=== PATIENT | female | born 1990 | race Caucasian/White ===

== ENCOUNTER 2017-05-15 01:53 | Emergency (ER) | payer OTHER ==
[~2017-05-15] VITALS: Ht 167.6 cm; Wt 87.4 kg
[2017-05-15 02:00] VITALS: BP 152/83; PULSE 80; TEMP 36.8; Ht 167.6 cm; Wt 87.4 kg
[2017-05-15] MEDS ORDERED: SODIUM CHLORIDE 0.9% 1000ML 2,000 ML IV STA (02:04)
[2017-05-15] MEDS ORDERED: ONDANSETRON INJ 2 MG/ML 2 ML VIAL IV STA (02:04)
[2017-05-15] MEDS ORDERED: DICYCLOMINE HCL 10 MG/ML 2 ML AMP IM ONE (02:15)
[2017-05-15 02:20] LABS: BASO % 0.2 %; BASO ABS # 0.02 K/uL (0-0.2); EOS % 0.5 %; EOS ABS # 0.04 K/uL (0-0.5); HEMATOCRIT 38.8 % (37-47); HEMOGLOBIN 13.7 g/dL (12.0-16.0); IG# 0.01 K/uL (0.00-0.02); LYMPH % 13.5 %; LYMPH ABS # 1.18 K/uL (1.2-3.4); MEAN CELL VOLUME 84.5 fL (80-100); MEAN CORPUSCULAR HEMOGLOBIN 29.8 pg (25-34); MEAN CORPUSCULAR HGB CONC 35.3 g/dl (32-36); MEAN PLATELET VOLUME 11.1 fL (7.4-10.4); MONO % 5.5 %; MONO ABS # 0.48 K/uL (0.11-0.59); NEUT % 80.2 %; NEUT ABS # 7.01 K/uL (1.4-6.5); PLATELET COUNT 222 K/uL (130-400); RED CELL DISTRIBUTION WIDTH CV 13.1 % (11.5-14.5); RED CELL DISTRIBUTION WIDTH SD 39.8 fL (36.4-46.3); WHITE BLOOD COUNT 8.74 K/uL (4.8-10.8)
[2017-05-15 02:46] LABS: CALCIUM 10.1 mg/dl (8.5-10.1); CREATININE 0.86 mg/dl (0.60-1.20); POTASSIUM 3.6 mmol/L (3.5-5.1)
--- NOTE | 2017-05-15 03:35 | EMERGENCY ROOM VISIT NOTE ---
History First contact with patient: 02:03 Chief Complaint: VOMITING Stated Complaint: NAUSEA,VOMITING,DIZZY,ABD PAIN History of Present Illness The patient is a 26 year old female who presents to the Emergency Room with complaints of nausea, vomiting, diarrhea and abdominal cramping for the past day. Spouse is sick with similar complaints. No recent antibiotics. No bad food exposure. No sick contacts. Patient denies chest pain, dyspnea, fever, chills, cough, congestion or urinary symptoms. No blood or black in the emesis or stool. Review of Systems See HPI for pertinent positives & negatives. A total of 10 systems reviewed and were otherwise negative. Past Medical/Surgical History Medical Problems: (1) No Known Active Medical Problems Family History Kidney disease Social History Smoking Status: Never Smoker Alcohol Use: none Marital Status: Housing Status: lives with family Current/Historical Medications No Active Prescriptions or Reported Meds Physical Exam Vital Signs Date Time Temp Pulse Resp B/P (MAP) Pulse Ox O2 Delivery O2 Flow Rate FiO2 05/15/17 02:00 36.8 80 18 152/83 98 Room Air Physical Exam VITALS: Vitals are noted on the nurse's note and reviewed by myself. Vital signs stable. GENERAL: Pleasant patient, in no acute distress, nondiaphoretic, well-developed well-nourished. SKIN: The skin was without rashes, erythema, edema, or bruising. There is no tenting of the skin. Capillary reflex less than 2 seconds. HEAD: Normocephalic atraumatic. EARS: External auditory canals clear, tympanic membranes pearly stapleton without erythema or effusion bilaterally. EYES: Pupils equal round and reactive to light and accommodation. Conjunctivae without injection, sclerae without icterus. Extraocular movements intact. NOSE: Patent, turbinates without inflammation or discharge. MOUTH: Mucous membranes mildly dry. Pharynx without erythema or exudate. Uvula midline. Airway patent. Tongue does not deviate. NECK: Supple without nuchal rigidity. No lymphadenopathy. No thyromegaly. Cervical spine is nontender. No JVD. HEART: Regular rate and rhythm without murmurs gallops or rubs. LUNGS: Clear to auscultation bilaterally without wheezes, rales or rhonchi. No dullness to percussion. No retractions or accessory muscle use. ABDOMEN: Positive bowel sounds x 4. Normal tympanic percussion. Soft, nontender, without masses or organomegaly. Pionn sign negative. No guarding or rebound tenderness. MUSCULOSKELETAL: No muscle atrophy, erythema, or edema noted. NEURO: Patient was alert and oriented to person place and time. Normal sensation to light and sharp touch. No focal neurological deficits. Medical Decision & Procedures Laboratory Results 05/15/17 02:07 Red Blood Count 4.59, Mean Corpuscular Volume 84.5, Mean Corpuscular Hemoglobin 29.8, Mean Corpuscular Hemoglobin Concent 35.3, Mean Platelet Volume 11.1, Neutrophils (%) (Auto) 80.2, Lymphocytes (%) (Auto) 13.5, Monocytes (%) (Auto) 5.5, Eosinophils (%) (Auto) 0.5, Basophils (%) (Auto) 0.2, Neutrophils # (Auto) 7.01, Lymphocytes # (Auto) 1.18, Monocytes # (Auto) 0.48, Eosinophils # (Auto) 0.04, Basophils # (Auto) 0.02 05/15/17 02:07 Test 05/15/17 02:07 05/15/17 03:21 White Blood Count 8.74 K/uL (4.8-10.8) Red Blood Count 4.59 M/uL (4.2-5.4) Hemoglobin 13.7 g/dL (12.0-16.0) Hematocrit 38.8 % (37-47) Mean Corpuscular Volume 84.5 fL (80-100) Mean Corpuscular Hemoglobin 29.8 pg (25-34) Mean Corpuscular Hemoglobin Concent 35.3 g/dl (32-36) Platelet Count 222 K/uL (130-400) Mean Platelet Volume 11.1 fL (7.4-10.4) Neutrophils (%) (Auto) 80.2 % Lymphocytes (%) (Auto) 13.5 % Monocytes (%) (Auto) 5.5 % Eosinophils (%) (Auto) 0.5 % Basophils (%) (Auto) 0.2 % Neutrophils # (Auto) 7.01 K/uL (1.4-6.5) Lymphocytes # (Auto) 1.18 K/uL (1.2-3.4) Monocytes # (Auto) 0.48 K/uL (0.11-0.59) Eosinophils # (Auto) 0.04 K/uL (0-0.5) Basophils # (Auto) 0.02 K/uL (0-0.2) RDW Standard Deviation 39.8 fL (36.4-46.3) RDW Coefficient of Variation 13.1 % (11.5-14.5) Immature Granulocyte % (Auto) 0.1 % Immature Granulocyte # (Auto) 0.01 K/uL (0.00-0.02) Anion Gap 4.0 mmol/L (3-11) Est Creatinine Clear Calc Drug Dose 109.4 ml/min Estimated GFR () 107.3 Estimated GFR (Non- 92.6 BUN/Creatinine Ratio 11.8 (10-20) Calcium Level 10.1 mg/dl (8.5-10.1) Human Chorionic Gonadotropin, Qual NEG (NEG) Urine Color YELLOW Urine Appearance CLEAR (CLEAR) Urine pH 5.5 (4.5-7.5) Urine Specific Archer 1.013 (1.000-1.030) Urine Protein NEG (NEG) Urine Glucose (UA) NEG (NEG) Urine Ketones NEG (NEG) Urine Occult Blood NEG (NEG) Urine Nitrite NEG (NEG) Urine Bilirubin NEG (NEG) Urine Urobilinogen NEG (NEG) Urine Leukocyte Esterase NEG (NEG) Medications Administered Medications (Trade) Dose Ordered Sig/Tae Route Start Time Stop Time Status Last Admin Dose Admin Sodium Chloride 2,000 ml @ 999 mls/hr Q2H1M STAT IV 05/15/17 02:04 05/15/17 04:04 05/15/17 02:16 999 MLS/HR Ondansetron HCl (Zofran Inj) 4 mg NOW STAT IV 05/15/17 02:04 05/15/17 02:05 DC 05/15/17 02:15 4 MG Dicyclomine HCl (Bentyl Inj) 20 mg NOW ONCE IM 05/15/17 02:15 05/15/17 02:16 DC 05/15/17 02:15 20 MG ED Course Prior records/ancillary studies reviewed. Triage Nursing notes reviewed. Additional history obtained from the family. The patient's history was concerning for nausea, vomiting, diarrhea, and abdominal pain. Differential diagnosis: Etiologies such as gastroenteritis, food borne illness, infections, appendicitis , diverticulitis, inflammatory bowel disease, obstruction, GI bleed, biliary pathology, as well as others were entertained. Physical examination findings: As above. Abdominal examination revealed no localized tenderness. Vital signs reviewed and revealed stable. ER treatment provided: IV hydration 2 L NSS. Zofran, Bentyl On reassessment the patient felt better. Patient was tolerating p.o. intake. Diagnostics interpretation by me: The labs revealed no worrisome leukocytosis. Mild hyperglycemia without DKA This appears to be consistent with nausea vomiting, diarrhea. Patient does not have an acute abdomen on exam. Patient felt much better after being medicated as above. Patient was advised to do a clear liquid diet today and progress as tolerated to bland diet tomorrow. They're advised to take medications as directed and to follow-up family care in a few days or here in the ER sooner for abdominal pain, fevers, vomiting, worsening signs or symptoms or as needed. By the evaluation outlined above emergent etiologies such as appendicitis, diverticulitis, obstruction, cardiac sources, mesenteric ischemia, aortic pathology, inflammatory bowel disease, renal colic, PUD, biliary pathology, UTI , as well as others were deemed relatively unlikely. The pt informed about the findings as listed above. All questions were answered and pleased with the treatment. Return instructions were outlined and the patient was discharged in stable condition. Outpatient prescription management: Zofran Referral: The patient was referred to their primary care physician for follow-up in 2 to 3 days for a recheck of the current condition. Medical Decision As above Medication Reconcilliation Current Medication List: was personally reviewed by me Blood Pressure Screening Patient's blood pressure: Normal blood pressure Impression Primary Impression: Nausea, vomiting, and diarrhea Departure Information Dispostion Home / Self-Care Condition GOOD Prescriptions No Active Prescriptions or Reported Meds Referrals Bud Bowers DO (PCP) Patient Instructions [facility] Additional Instructions Bentyl 10 m tablet every 6-8 hours as needed for abdominal cramping. Zofran(odansetron) tablets 4mg: Take one and allow it to dissolve in your mouth every four to six hours as needed for nausea or vomiting. Ibuprofen(Motrin, Advil) may be used for fever or pain. Use 600mg every six hours as needed. Take with food. Avoid using more than 2400mg in a 24 hour period. Do not use 2400mg per day for more than three consecutive days without physician direction. Prolonged inappropriate use can lead to stomach upset or ulcers. (AND/OR) Acetaminophen(Tylenol) may be used for fever or pain. Use 1000mg every six hours as needed. Avoid using more than 3000mg in a 24 hour period. Rest and drink plenty of fluids as tolerated. Slow sips of water or sports drinks are recommended instead of large amounts all at once. Continue current medications. Once your stomach is settled start with a clear liquid diet (jello, soup broth, etc.) and then advance as tolerated. You should avoid full, heavy meals for about 24 hrs from the time your symptoms resolved. Return to the ER for persistent vomiting, fevers, abdominal pain, chest pains, difficulty breathing, black or bloody stools, worsening of your condition, or as needed. Follow up with your primary physician in 2-3 days for a recheck of your current condition.
[2017-05-15] MEDS ORDERED: BENTYL HOME PACK 10 MG VIAL PO ONE (03:45)
[2017-05-15] MEDS ORDERED: ONDANSETRON HOME PACK 4MG OD TAB PO ONE (03:45)
[2017-05-15 04:00] VITALS: O2SAT 99
== END 2017-05-15 04:00 | disposition home or self-care (01) ==
LOC: C.EDB 01:54 → C.EDA 04:00
DX: R11.2 Nausea with vomiting, unspecified (principal); R19.7 Diarrhea, unspecified; Z84.1 Family history of disorders of kidney and ureter

== ENCOUNTER 2021-02-20 05:28 | Inpatient (IN) ==
--- NOTE | 2021-02-11 08:55 | Anesthesiology Consultation ---
Date of Service February 11, 2021 Assessment & Plan (1) Encounter for pre-operative examination: COVID screening: Per assessment on 02/10: Travel screen negative, no known COVID- 19 positive contacts or current COVID-19 related symptoms. Surgeon arranging preop COVID testing. Awaiting results. 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 Surgery Operation Date: 02/20/21 08:50 Proposed Procedures p Section (Delivery of Baby Through Abdominal Incision - Linda Aguirre MD, FACOG s Bilateral Tube Ligation - Linda Aguirre MD, FACOG Height/Weight Height: 5 ft 6 in Weight: 79.379 kg Allergies Allergy/AdvReac Type Severity Reaction Status Date / Time bee venom protein (honey bee) Allergy Unknown SHORTNESS Verified 02/10/21 15:59 OF BREATH,swelling,fever hydrocodone AdvReac Unknown seizures Verified 02/10/21 15:59 Medications Home Medications Medication Instructions Recorded Confirmed Last Taken prenat.vits,erasmo,lce-[id number]-locwp 1 tab PO DAILY 07/15/20 02/10/21 12/17/20 aspirin 81 mg tablet,delayed 81 mg PO DAILY 12/18/20 02/10/21 12/17/20 release (Adult Low Dose Aspirin) Breast Pump #1 ea 01/30/21 02/04/21 Unknown ondansetron HCl 4 mg tablet 4 mg PO UD PRN 02/10/21 02/10/21 Unknown Past Medical History Medical History Severe pre-eclampsia in third trimester, antepartum hx Past Family History Family History Father Kidney disease Denies family history of Ovarian cancer Prostate cancer Myocardial infarction Breast cancer Colorectal cancer Past Surgical History Surgical History History of Social History Smoking Status: Former smoker tobacco type: cigarettes Do You Dip or Chew Tobacco: No Smoking End Date: SMOKED AGE 16-20 Hx Alcohol Use: No Hx Substance Use: No substance use type: does not use Lab Results Anesthesia Preop Results Results Anesthesia Widget: WBC 9.09 K/uL (4.8-10.8) 12/18/20 Hgb 10.2 g/dL (12.0-16.0) L 12/18/20 Hct 30.2 % (37-47) L 12/18/20 Plt 208 K/uL (130-400) 12/18/20 Na 136 mmol/L (136-145) 12/18/20 K 3.4 mmol/L (3.5-5.1) L 12/18/20 Cl 106 mmol/L (98-107) 12/18/20 CO2 24 mmol/L (21-32) 12/18/20 BUN 12 mg/dl (7-18) 12/18/20 Creat 0.67 mg/dl (0.6-1.2) 12/18/20 Glucose Level 101 mg/dl (70-99) H 12/18/20 Testing Electrocardiogram Date: 11/13/20 SB with short LA at 55bpm. Low voltage QRS. Cannot r/o anterior infarct, age undetermined. Chest X-Ray Date: 11/13/20 Findings: + NAD
--- NOTE | 2021-02-19 20:47 | History & Physical Report ---
Date of Service February 19, 2021 Assessment & Plan (1) Supervision of normal intrauterine in multigravida: (2) Umbilical cord, velamentous insertion: (3) H/O section: (4) Encounter for sterilization: Plan: Will be admitted on 02/20 for planned repeat section and tubal ligation. Risks, alternatives and complications reviewed and consent signed. She is aware of permanence and irreversibility of sterilization, failure and risk of regret r verowed in detail. Patient will plan OR in am. All questions answered, ready to proceed. History of Present Illness Chief Complaint: planned section/desires sterilization Primary Care Provider: Bud Bowers 30yo (twins) at 39+wks ega for planned section and tubal ligation. Denies rom, vb, ctx. +FM. PNC c/b 1. Velamentous cord insertion, normal growth and testing 2. Prior c/s, desires repeat c/s 3. Desires sterilization 4. GBS pos urine 5. Prior complicated by preeclampsia 6. CF carrier, spouse neg PNL Rh pos, RI, GBS postive OBH: c/s twins at 35wks for preeclampsia GYNH: nl paps, no stds Allergies Allergy/AdvReac Type Severity Reaction Status Date / Time bee venom protein (honey bee) Allergy Unknown SHORTNESS Verified 02/19/21 16:04 OF BREATH,swelling,fever hydrocodone AdvReac Unknown seizures Verified 02/19/21 16:04 Home Medications Medication Instructions Recorded Confirmed Type prenat.vits,erasmo,tjm-[id number]-qpnqa 1 tab PO DAILY 07/15/20 02/19/21 History aspirin 81 mg tablet,delayed 81 mg PO DAILY 12/18/20 02/19/21 History release (Adult Low Dose Aspirin) Breast Pump #1 ea 01/30/21 02/19/21 Rx ondansetron HCl 4 mg tablet 4 mg PO UD PRN 02/10/21 02/19/21 History Patient History Medical History Severe pre-eclampsia in third trimester, antepartum hx Surgical History History of Family History Father Kidney disease Denies family history of Ovarian cancer Prostate cancer Myocardial infarction Breast cancer Colorectal cancer Social History Smoking Status: Former smoker Second Hand Exposure: No; Hx Alcohol Use: No Hx Substance Use: No Preferred Language: Portuguese Communication Ability: Effective Orthoptist Required: No Beliefs That Will Affect Care: None marital status: marital status details: Diego (33) [phone] Current Living Situation: Spouse and Family Current Living Situation Comment: lives with spouse, 2 children, 2 dogs. current occupational status: unemployed Feels Safe at Home: Yes Childhood Exposure to Second-Hand Smoke: No caffeine: Yes Dental Care, Regularly: Yes Physical Activity Frequency: 3-4 Times per Week Seatbelt Use: always Sunscreen Use: Yes Assistive Devices: Glasses Review of Systems as per Subjective / HPI Physical Exam Constitutional: WD/WN, vitals as above Respiratory: normal respiratory effort, lungs clear to auscultation Cardiovascular: Rate/Rhythm: regular rate and regular rhythm Gastrointestinal (Abdomen): soft gravid nt fhts 140 Musculoskeletal: no edema nontender calves Neurologic: grossly normal Psychiatric: A+Ox3, euthymic affect Coding Level of Care Code None Diagnoses Supervision of normal intrauterine in multigravida Z34.80 Umbilical cord, velamentous insertion O43.129 H/O section Z98.891 Encounter for sterilization Z30.2
[2021-02-20] MEDS ORDERED: LACTATED RINGER'S 1,000 ML IV SCH (05:45)
[2021-02-20] MEDS ORDERED: ceFAZolin 2,000 MG in SYRINGE 0 ML IV SCH (06:00)
[2021-02-20] MEDS ORDERED: CITRIC ACID/SODIUM CITRATE 15 ML UDC PO SCH (06:00)
[2021-02-20 06:59] LABS: Hematocrit (blood only) 28.4 % (37-47); Hemoglobin 9.3 g/dL (12.0-16.0); Mean Corpuscular Hemoglobin 25.5 pg (25-34); Mean Corpuscular Hgb Conc 32.7 g/dL (32-36); Mean Corpuscular Volume 77.8 fL (80-100); Mean Platelet Volume 11.2 fL (7.4-10.4); Platelet Count 197 K/uL (130-400); RDW Coefficient of Variation 14.1 % (11.5-14.5); RDW Standard Deviation 40.2 fL (36.4-46.3); Red Blood Count 3.65 M/uL (4.2-5.4); White Blood Count 7.11 K/uL (4.8-10.8)
[2021-02-20 07:15] LABS: ALC (manual) 1.12 K/uL (1.2-3.4); ANC (manual) 5.69 K/uL (1.4-6.5); Eosinophils # (manual) 0.12 K/uL (0-0.5); Eosinophils % (manual) 1.7 %; Lymphocytes # (manual) 1.12 K/uL (1.2-3.4); Lymphocytes % (manual) 15.7 %; Monocytes # (manual) 0.18 K/uL (0.11-0.59); Monocytes % (manual) 2.6 %; Neutrophils # (manual) 5.69 K/uL (1.4-6.5)
--- NOTE | 2021-02-20 07:23 | History & Physical Bridge Note ---
Date of Service February 20, 2021 History & Physical Bridge Note I have examined the patient, reviewed the History & Physical and in the interval since the performance of the History & Physical I have noted the following changes of clinical significance: no changes noted
[2021-02-20] MEDS ORDERED: MoRPHine SULFATE PF 1 MG/ML 10 ML AMP/VIAL ONE (07:28)
[2021-02-20] MEDS ORDERED: ePHEDrine sulfate 50 MG/ML AMP IV PRN (08:38)
[2021-02-20] MEDS ORDERED: diphenhydrAMINE 50 MG/ML VIAL IV PRN (08:38)
[2021-02-20] MEDS ORDERED: HYDROmorphone INJ 0.5 MG/0.5 ML SYR IV PRN (08:38)
[2021-02-20] MEDS ORDERED: METOCLOPRAMIDE HCL 10 MG in SODIUM CHLORIDE 0.9% 50 ML IV PRN (08:38)
[2021-02-20] MEDS ORDERED: NALOXONE HCL 0.4 MG/1 ML VIAL/CARP IV PRN (08:38)
[2021-02-20] MEDS ORDERED: NALOXONE HCL 0.08 MG in SYRINGE 1.8 ML IV PRN (08:38)
[2021-02-20] MEDS ORDERED: NALOXONE HCL 1 MG in SODIUM CHLORIDE 0.9% 1000ML 1,000 ML IV PRN (08:38)
[2021-02-20] MEDS ORDERED: MEPERIDINE HCL 25 MG/ML CARP/VIAL IV PRN (08:38)
[2021-02-20] MEDS ORDERED: ONDANSETRON INJ 2 MG/ML 2 ML VIAL IV PRN (08:38)
[2021-02-20] MEDS ORDERED: MoRPHine SULFATE 2 MG/ML CARP IV PRN (08:38)
[2021-02-20] MEDS ORDERED: PROMETHAZINE HCL 12.5 MG in SODIUM CHLORIDE 0.9% 50 ML IV PRN (08:38)
[2021-02-20] MEDS ORDERED: LACTATED RINGER'S 500 ML IV PRN (08:38)
[2021-02-20] MEDS ORDERED: NALBUPHINE HCL INJ 10 MG/ML AMP IV PRN (08:38)
[2021-02-20] MEDS ORDERED: MoRPHine SULFATE PF 1 MG/ML 10 ML AMP/VIAL INT SPINAL ONE (08:38)
[2021-02-20] MEDS ORDERED: PHENYLEPHRINE 100MCG/ML 5ML SYR ONE (08:40)
[2021-02-20] MEDS ORDERED: OXYTOCIN 10 UNITS/ML VIAL ONE (08:40)
[2021-02-20] MEDS ORDERED: ePHEDrine sulfate 50 MG/ML SYR ONE (08:40)
[2021-02-20] MEDS ORDERED: SODIUM CHLORIDE 0.9% 1000ML 1,000 ML IV SCH (08:45)
[2021-02-20] MEDS ORDERED: NO NARCOTICS OR SEDATIVES SCH (08:45)
[2021-02-20] MEDS ORDERED: DC INTRASPINAL MORPHINE SCH (08:45)
[2021-02-20] MEDS ORDERED: SUPERCREAM 0.870% 15 GM JAR EXT PRN (08:51)
[2021-02-20] MEDS ORDERED: BENZOCAINE 20% AER SPR 82.5 GM CAN EXT PRN (08:51)
[2021-02-20] MEDS ORDERED: DIPHTHERIA/TETANUS/PERTUSSIS 0.5 ML SYR/VIAL IM ONE (08:51)
[2021-02-20] MEDS ORDERED: HYDROCORTISONE ACETATE 25 MG SUPP PR PRN (08:51)
--- NOTE | 2021-02-20 08:53 | Post Operative Brief Note ---
PG Immediate Post Op with CF Date of Surgery February 20, 2021 Pre & Post Diagnosis Operation Date: 02/20/21 07:30 Pre-Op Diagnosis: 1. 39 Week IUP 2. Prior Section; Desires Repeat 3. Desires Sterilization Post-Op Diagnosis: 1. Same I identified the patient and participated in the time-out.: Yes Procedure Operation Date: 02/20/21 07:30 Actual Procedures pRepeat lower uterine transverse section Modified José Miguel Bilateral Tubal Ligation Surgeon Linda Aguirre MD, FACOG Court Assistant Kelly Estimated Blood Loss 600 Findings Consistent with Post-Op Diagnosis (viable female apgars 8,9 normal uterus, tubes, ovaries bilaterally) Fluids 1300 Specimens Specimen Description: 1. Cord Blood Obtained 2. Placenta: Hold 3. Right and Left Portion of Fallopian Tubes Drains Carcamo Catheter Anesthesia Type Spinal Complications none Disposition Accompanied Patient To Recovery: No Disposition: L&D
--- NOTE | 2021-02-20 08:56 | Operative Report ---
PG Post Operative Report Pre & Post Diagnosis Operation Date: 02/20/21 07:30 Pre-Op Diagnosis: 1. 39+ Week IUP 2. Velamentous Cord Insertion 3. Prior Section; Desires Repeat 4. Desires Sterilization Post-Op Diagnosis: 1. Same I identified the patient and participated in the time-out.: Yes Procedure Operation Date: 02/20/21 07:30 Actual Procedures 1. Repeat Low Transverse Section 2. Modified [place] Bilateral Tubal Ligation Surgeon Linda Aguirre MD, FACOG System Safety Engineer Kelly Estimated Blood Loss 600 Findings Consistent with Post-Op Diagnosis (viable female apgars 8,9 normal uterus, tubes , ovaries bilaterally) Fluids 1300 Specimens cord blood, left and right portions of fallopian tubes Drains hernandez Anesthesia Type Spinal Complications none Disposition Accompanied Patient To Recovery: No Disposition: L&D Description of Procedure The patient was taken to the operating room and identified. After adequate anesthesia was obtained, she was placed in the supine position with a leftward tilt on the operating table and prepped and draped in the usual sterile fashion. A hernandez catheter had already been placed. The knife was used to create a Pfannensteil skin incision that was carried down to the underlying layer of fascia. The fascia was nicked in the midline and this opening was extended laterally using Warren scissors. Bryce clamps were placed on the superior and inferior aspect of the fascial incision tenting it upward and the underlying rectus muscles were dissected off the overlying fascia both sharply and bluntly using Warren scissors. The rectus muscles were bluntly in the midline. The peritoneal cavity was bluntly entered into. This opening was stretched. The bladder blade was placed. The vesicouterine peritoneum was elevated and opened up into and the bladder flap was created digitally and bladder blade was replaced. The knife was used to create a hysterotomy and this opening was stretched. The operators hand was placed through the hysterotomy and the bladder blade was removed. The head was elevated and flexed and with fundal pressure the head was delivered. The shoulders and body were rapidly delivered. The cord was clamped and cut and the 's mouth and nares were bulb suction. The was handed off to the awaiting pediatricians. Cord blood was obtained. The placenta was manually expressed. The uterus was exteriorized and cleared of all clots and debris. Dilute IV Pitocin was begun. The uterine tone was improving. The hysterotomy was closed in a running interlocking fashion using 0 Vicryl followed by a second imbricating layer of 0 Vicryl.Attention was turned to the left fallopian tube that was followed out to its fimbriated end. The tube was elevated using a laura clamp and a knuckle of tube was doubly ligated with 2-0 plain suture and transected. The specimen was sent. The stumps were cauterized with the bovie. The right fallopian tube was identified to its fimbriated end, elevated, double ligated and transected in a similar fashion. The specimen was sent and the stump of tube was cauterized with the bovie. The hysterotomy was hemostatic. The pelvis was irrigated. The uterus was returned to the abdomen. The gutters were cleared of all clots and debris. The hysterotomy was reinspected and noted to be hemostatic as were the tubal ligation. The fascia was then closed in running fashion using 0 Vicryl. The subcutaneous fat was copiously irrigated and reapproximated using 2-0 chromic. The skin was closed in a subcuticular fashion using 4-0 Vicryl. At this point the procedure was terminated. The patient was transferred to the recovery room in stable condition. All sponge, lap and needle counts are correct x2. I attest to the content of the Intraoperative Record and any orders documented therein. Any exceptions are noted below. OB Procedure Charges [id number] Add on Tubal for C/S
[2021-02-20] MEDS: OXYTOCIN 20 UNITS in LACTATED RINGER'S 1,000 ML IV SCH ×2 (09:56→18:02)
[2021-02-20] MEDS: LACTATED RINGER'S 1,000 ML IV SCH (10:02)
--- NOTE | 2021-02-20 13:39 | Anesthesiology Progress Note ---
Date of Service February 20, 2021 Anesthesia Post Procedure Vital Signs Vital Signs: Temp Pulse Pulse Resp BP BP Pulse Ox 02/20/21 12:44 36.7 C 65 18 122/72 99 02/20/21 12:30 20 100 02/20/21 11:45 36.5 C 60 16 119/71 100 02/20/21 11:40 20 100 02/20/21 11:20 57 L 100 02/20/21 11:15 36.4 C L 57 L 20 100 02/20/21 11:14 56 L 130/68 02/20/21 11:10 51 L 100 02/20/21 11:05 51 L 128/65 100 02/20/21 11:00 55 L 99 02/20/21 10:55 50 L 100 02/20/21 10:54 49 L 123/67 02/20/21 10:50 57 L 100 02/20/21 10:45 49 L 20 123/67 100 02/20/21 10:44 58 L 118/66 02/20/21 10:40 52 L 100 02/20/21 10:35 51 L 130/70 100 02/20/21 10:30 53 L 100 02/20/21 10:25 55 L 100 02/20/21 10:24 50 L 125/66 02/20/21 10:20 56 L 100 02/20/21 10:15 36.4 C L 57 L 18 128/71 100 02/20/21 10:14 56 L 128/71 02/20/21 10:10 54 L 100 02/20/21 10:05 56 L 100 02/20/21 10:04 36.4 C L 53 L 18 127/65 99 02/20/21 10:00 53 L 100 02/20/21 09:55 53 L 18 126/60 100 02/20/21 09:50 54 L 100 02/20/21 09:45 55 L 18 120/56 L 100 02/20/21 09:40 53 L 100 02/20/21 09:35 55 L 20 110/53 L 99 02/20/21 09:30 57 L 99 02/20/21 09:26 60 123/62 02/20/21 09:25 57 L 20 99 02/20/21 09:20 58 L 100 02/20/21 09:15 36.4 C L 58 L 20 99 02/20/21 09:14 51 L 127/62 02/20/21 09:12 55 L 94 02/20/21 09:10 54 L 100 02/20/21 09:05 56 L 100 02/20/21 09:04 54 L 125/61 02/20/21 05:43 36.6 C 18 02/20/21 05:38 64 128/60 Pain Intensity Bilateral Abdomen: Pain Intensity: 4 Transfer of Care Handoff Completed per policy Notes Mental Status: alert / awake / arousable and participated in evaluation Patient Amnestic to Procedure: Yes Nausea / Vomiting: adequately controlled Pain: adequately controlled Airway Patency, RR, SpO2: stable & adequate BP & HR: stable & adequate Hydration State: stable & adequate Neuraxial Anesthesia: was administered and sensory block is resolving Anesthetic Complications: no major complications apparent
[2021-02-20] MEDS: SIMETHICONE 80 MG CHEW PO SCH ×3 (13:50→22:06)
[2021-02-20] MEDS: KETOROLAC 30 MG/ML VIAL IV PRN (19:30)
[2021-02-20] MEDS: DOCUSATE SODIUM 100 MG CAP PO SCH (22:06)
[2021-02-21] MEDS: KETOROLAC 30 MG/ML VIAL IV PRN (02:12)
[2021-02-21] MEDS ORDERED: ONDANSETRON INJ 2 MG/ML 2 ML VIAL IV PRN (02:38)
[2021-02-21] MEDS ORDERED: diphenhydrAMINE Capsule 25 MG CAP PO PRN (02:38)
[2021-02-21] MEDS ORDERED: oxyCODONE/ACETAMINOPHEN 5mg/325mg TAB PO PRN (02:38)
[2021-02-21] MEDS ORDERED: diphenhydrAMINE 50 MG/ML VIAL IV PRN (02:38)
[2021-02-21] MEDS ORDERED: KETOROLAC 30 MG/ML VIAL IV PRN (02:38)
[2021-02-21 05:59] LABS: Basophils # (auto) 0.01 K/uL (0-0.2); Basophils % (auto) 0.1 %; Eosinophils # (auto) 0.03 K/uL (0-0.5); Eosinophils % (auto) 0.3 %; Hematocrit (blood only) 26.2 % (37-47); Hemoglobin 8.5 g/dL (12.0-16.0); Immature Granulocytes # (auto) 0.01 K/uL (0.00-0.02); Immature Granulocytes % (auto) 0.1 %; Lymphocytes # (auto) 0.73 K/uL (1.2-3.4); Lymphocytes % (auto) 7.1 %; Mean Corpuscular Hemoglobin 25.4 pg (25-34); Mean Corpuscular Hgb Conc 32.4 g/dL (32-36); Mean Corpuscular Volume 78.4 fL (80-100); Monocytes # (auto) 0.53 K/uL (0.11-0.59); Monocytes % (auto) 5.2 %; Neutrophils # (auto) 8.96 K/uL (1.4-6.5); Neutrophils % (auto) 87.2 %; Platelet Count 159 K/uL (130-400); RDW Coefficient of Variation 14.3 % (11.5-14.5); RDW Standard Deviation 40.9 fL (36.4-46.3); Red Blood Count 3.34 M/uL (4.2-5.4); White Blood Count 10.27 K/uL (4.8-10.8)
[2021-02-21] MEDS: SIMETHICONE 80 MG CHEW PO SCH ×4 (07:46→20:43)
[2021-02-21] MEDS: DOCUSATE SODIUM 100 MG CAP PO SCH ×2 (07:46→20:43)
[2021-02-21] MEDS: FERROUS SULFATE 325 MG TAB PO SCH (07:46)
[2021-02-21] MEDS: PRENATAL VITAMIN 1 TAB PO SCH (07:46)
[2021-02-21] MEDS: IBUPROFEN 600 MG TAB PO PRN ×3 (07:46→16:09)
--- NOTE | 2021-02-21 07:58 | Obstetrical Progress Note ---
Date of Service February 21, 2021 Assessment & Plan (1) care following delivery: doing well, hgb noted. routine pp care. Day #:: 1 Subjective Ambulation: ambulating normally Voiding: no voiding problems Passing Gas:: Yes Diet Tolerance:: regular diet Lochia:: Small Feeding Type:: breast feeding no concerns for cp/sob, no pain issues. Constitutional: + as per Subjective / HPI Physical Exam Constitutional WD/WN, vitals as above Respiratory normal respiratory effort, lungs clear to auscultation Cardiovascular Rate/Rhythm: regular rate and regular rhythm Gastrointestinal (Abdomen) Inspection/Auscultation: abdomen normal to inspection and + abdominal surgical incision (c/d/i) Percussion/Palpation: abdomen soft Fundus firm 2cm down Musculoskeletal nt calves Neurologic grossly normal Psychiatric A+Ox3, euthymic affect Results & Data ([facility]) Vital Signs (Past 12 Hours) Vital Signs Temp Pulse Resp BP Pulse Ox 02/21/21 04:20 98.1 F 64 18 110/61 02/21/21 02:38 18 98 02/21/21 02:00 18 96 02/21/21 01:00 18 97 02/21/21 00:00 18 95 02/20/21 23:55 97.5 F L 50 L 18 107/67 98 02/20/21 23:00 18 98 02/20/21 22:00 18 98 02/20/21 21:00 18 96 02/20/21 20:00 18 97
[2021-02-21] MEDS ORDERED: ALUMINUM/MAGNESIUM SUSP 18 ML, LIDOCAINE VISCOUS 2% SOLN 6 ML, BARCODE IDENTIFIER 1 EA PO ONE (13:29)
--- NOTE | 2021-02-21 13:44 | Obstetrical Progress Note ---
Date of Service February 21, 2021 Assessment & Plan (1) Chest pain: Plan: Chest pain of unclear etiology in the setting of POD#1 from . Many possible etiologies. Most common would be a benign cause such as heartburn, subdiaphragmatic irritation from surgical air or fluid, musculoskeletal discomfort, ileus / referred gas pain, or breast tissue beginning to fill. More concerning but less likely given her normal vitals would be PE or cardiomyopathy. There is currently no hypertension, nor any of the more classic PIH symptoms, to suggest preeclampsia, but she has a history of same and her plts were 150s today from 190s yesterday; will check CMP to cover that possibility. Discussed trying a GI cocktail to soothe the esophageal passage, and also getting an EKG and CT chest. Of note the patient's FOB is a conservation technician and is particularly concerned that her symptoms may represent a PE. Although she lacks objective signs of this, it is possible for signs to be subtle and the risk of missing a PE would be large, so the CT was offered and accepted. The above were discussed with the patient's RN at the nursing station immediately after I left the room and are being implemented now. Admission and Anticipated Discharge Date Admission Date: February 20, 2021 Subjective I was called by RN to notify me that patient has begun to c/o R chest pain. I came to room immediately and visited with patient and FOB. Patient tells me she began having R upper chest pain, located primarily in that one spot on the anterior aspect of her R shoulder (she points to it), about 2 hours ago while she was sitting in bed. She was not doing anything at the time, just resting. She has since noticed that the pain is worsening and now radiates to R diaphragm area and L chest/anterior shoulder as well, especially when she takes a deep breath. She has eaten and had liquids to drink since the pain started without significant change in the pain. It is constant, not intermittent, has never gone away since she first noticed it. She is able to take deep breaths when prompted, and has no outward signs of pain during deep breaths, but notes that doing so worsens her pain. She is POD#1 from CS with Hgb low preoperatively and an appropriate drop (9.3 to 8.5), has done minimal ambulation thus far (not been seen to leave the room to walk the unit), and at this time patient in bed has no SCD's on (though they are in the room, she is not wearing them at this moment; per RN the patient *has* been using them much of the time since her surgery). She has been using multiple doses of prn simethicone since her surgery. She is not yet passing flatus. She does not have leg pain, leg swelling, or any other complaints at this time. She specifically denies shortness of breath. Physical Exam Constitutional: WD/WN, vitals as above Eyes: PERRL, conjunctivae normal, anicteric sclerae ENMT: Ears: no hearing impairment and no external ear abnormality Nose: no external nose abnormality Mouth: no lip abnormality Neck: trachea midline, no thyromegaly normal visual inspection Respiratory: normal respiratory effort and able to speak in complete sentences; no respiratory distress and no labored breathing Cardiovascular: Rate/Rhythm: regular rate and regular rhythm Extremities: no edema (specifically both feet /ankles normal, no edema, Neg Ibeth) Skin: no rashes, warm and dry Neurologic: PERRL, EOMI, accommodation nl, no face palsy, no dysarthria awake Motor/Sensory: normal movement As I sat to write this note after leaving patient's room, she was seen to exit the room to ambulate the hallways as advised. She is noted to have a slow but otherwise normal gait, though she is rubbing her right shoulder with her left hand as she walks around the nursing station. She completes only 1/4 lap of the unit before returning to her room. Psychiatric: A+Ox3, euthymic affect Results & Data ([facility]) Vital Signs (Past 12 Hours) Vital Signs Temp Pulse Resp BP Pulse Ox 02/21/21 08:00 98.6 F 58 L 16 116/76 99 02/21/21 04:20 98.1 F 64 18 110/61 02/21/21 02:38 18 98 02/21/21 02:00 18 96 PG Care Time/CCT Total # of Minutes Spent Total Time Spent with Patient: Total time spent is greater than 50% in coordination of care (as documented) at patient's floor/unit and/or counseling patient: Coding Level of Care Code None Diagnoses Chest pain R07.9
[2021-02-21] MEDS ORDERED: OPTIRAY 320 125ml IV ONE (14:17)
--- NOTE | 2021-02-21 14:42 | CT Scan Report ---
CT angio chest PE protocol CT DOSE: 360.38 mGycm HISTORY: 30 years-old Female with PE. Acute severe chest pain and shortness breath with recent C-se ction. TECHNIQUE: Multiple CTA images of the chest were obtained after the intravenous administration of 116 ml Optiray. Coronal and sagittal MIPS were obtained from the axial data set and were submitted for review. All measurements were obtained according to NASCET criteria. A dose lowering technique was u tilized adhering to the principles of ALARA. COMPARISON: Pelvic ultrasound 01/30/2021 FINDINGS: CTA: The heart is upper limits of normal in size. No pericardial effusion. Normal thoracic aorta and image d great vessels. The pulmonary artery is opacified to the level of the subsegmental branches and demo nstrates no filling defects. CT CHEST: Normal thyroid. No adenopathy. Trace pleural effusions. No pneumothorax, overt pulmonary edema or air space consolidation. Central airways are patent. Upper abdominal pneumoperitoneum. Suggested pneumobilia. Unremarkable soft tissues. No acute fracture . IMPRESSION: 1. No pulmonary emboli. 2. Trace pleural effusions. 3. Upper abdominal pneumoperitoneum, likely secondary to the patient's reported recent secti on. ACT 112: Negative or not required by law. The above report was generated using voice recognition software. It may contain grammatical, syntax o r spelling errors. Electronically signed by: Junaid Lion M.D. 02/21/2021 2:41 PM
[2021-02-21] MEDS: LACTATED RINGER'S 1,000 ML IV SCH ×2 (15:08→15:09)
[2021-02-21 16:09] LABS: Albumin Level 2.5 gm/dl (3.4-5.0); BUN Creatinine Ratio 8.4 (10-20); Calcium 8.9 mg/dl (8.5-10.1); Creatinine Clr Calc Pharmacy 104.1 ml/min; Est GFR (African American) 108.9 ml/min; Potassium 3.7 mmol/L (3.5-5.1)
[2021-02-21 16:12] LABS: Albumin Globulin Ratio 0.7 (0.9-2); Bilirubin,Total 0.4 mg/dl (0.2-1); Globulin 3.6 gm/dl (2.5-4.0); Total Protein 6.1 gm/dl (6.4-8.2)
[2021-02-22] MEDS: IBUPROFEN 600 MG TAB PO PRN (00:29)
[2021-02-22 07:09] LABS: Hematocrit (blood only) 26.6 % (37-47); Hemoglobin 8.6 g/dL (12.0-16.0)
[2021-02-22] MEDS: FERROUS SULFATE 325 MG TAB PO SCH (07:54)
[2021-02-22] MEDS: DOCUSATE SODIUM 100 MG CAP PO SCH (07:54)
[2021-02-22] MEDS: SIMETHICONE 80 MG CHEW PO SCH (07:54)
[2021-02-22] MEDS: PRENATAL VITAMIN 1 TAB PO SCH (07:54)
--- NOTE | 2021-02-22 08:11 | Obstetrical Progress Note ---
Date of Service February 22, 2021 Assessment & Plan (1) care following delivery: Patient recovering well at this point. Pain yesterday likely due to subdiaphragmatic air, as this is improved and EKG/CT were reassuring. Has h/o preeclampsia, so labs also checked; only abnormality was a subtle bump in one transaminase, but BP normal and all other labs OK, and patient without symptoms, so likely insignificant. Patient counseled today to continue monitoring for s/sx of preeclampsia between now and her checkup and to call with OTTO, RUQ pain, vision change or worsening edema as well as return of her chest / shoulder discomfort. She desires d/c home today. Instructions were reviewed. To call for 6 week f/u. Subjective Ambulation: ambulating normally Voiding: no voiding problems Passing Gas:: Yes Diet Tolerance:: regular diet Lochia:: Small Feeding Type:: breast feeding Chest pain she was experiencing yesterday resolved. It briefly resumed early this morning, then went away when she got up to shower and has not returned. No SOB. Has passed gas, no BM yet. Eating normally. Has no OTTO, vision changes, RUQ pain or swelling. Wants to go home. Physical Exam Constitutional WD/WN, vitals as above Eyes PERRL, conjunctivae normal, anicteric sclerae Neck normal visual inspection Respiratory normal respiratory effort and able to speak in complete sentences; no respiratory distress and no labored breathing Cardiovascular Rate/Rhythm: regular rate and regular rhythm Extremities: no edema Chest (Breasts) Chest: normal inspection of chest Gastrointestinal (Abdomen) Inspection/Auscultation: abdomen normal to inspection sleeping on abdomen at time of my exam; pt declines moving baby, fundal exam done earlier by nurses accepted, patient also reports incision c/d/i. Psychiatric A+Ox3, euthymic affect Results & Data ([facility]) Vital Signs (Past 12 Hours) Vital Signs Temp Pulse Pulse Resp BP Pulse Ox 02/22/21 07:10 98.2 F 55 L 16 117/72 97 02/21/21 23:35 98.2 F 61 16 118/73 97 Laboratory Results Laboratory Results - last 24 hr 02/21/21 02/22/21 15:30 06:55 Hgb 8.6 L Hct 26.6 L Sodium 139 Potassium 3.7 Chloride 105 Carbon Dioxide 29 Anion Gap 5.0 BUN 7 Creatinine 0.83 Est Cr Clr Drug Dosing 104.1 Est GFR ( Amer) 108.9 Est GFR (Non-Af Amer) 94.0 BUN/Creatinine Ratio 8.4 L Glucose 97 Calcium 8.9 Total Bilirubin 0.4 AST 46 H ALT 23 Alkaline Phosphatase 107 Total Protein 6.1 L Albumin 2.5 L Globulin 3.6 Albumin/Globulin Ratio 0.7 L
--- NOTE | 2021-02-22 09:41 | Electrocardiogram Report ---
Test Reason : Blood Pressure : / mmHG Vent. Rate : 070 BPM Atrial Rate : 070 BPM P-R Int : 114 ms QRS Dur : 078 ms QT Int : 382 ms P-R-T Axes : 051 038 029 degrees QTc Int : 412 ms Normal sinus rhythm with sinus arrhythmia Low voltage QRS Borderline ECG When compared with ECG of 13-NOV-2020 11:41, No significant change was found Confirmed by Franki Ortiz ([id number]) on 02/22/2021 9:41:02 AM Referred By: Linda Aguirre Confirmed By:Franki Ortiz
--- NOTE | 2021-02-24 10:52 | Discharge Summary ---
Date of Service Day of admission: February 20, 2021 Day of discharge: February 22, 2021 Admission HPI Per Admitting Provider 30yo (twins) at 39+wks ega for planned section and tubal ligation. Denies rom, vb, ctx. +FM. PNC c/b 1. Velamentous cord insertion, normal growth and testing 2. Prior c/s, desires repeat c/s 3. Desires sterilization 4. GBS pos urine 5. Prior complicated by preeclampsia 6. CF carrier, spouse neg PNL Rh pos, RI, GBS postive OBH: c/s twins at 35wks for preeclampsia GYNH: nl paps, no stds Discharge Data Consultations 02/20/21 05:38 Consult Anesthesiology Stat Procedures Performed Operation Date: 02/20/21 07:30 Actual Procedures 1. Repeat Low Transverse Section 2. Modified [place] Bilateral Tubal Ligation Hospital Course (1) Encounter for sterilization: (2) H/O section: The patient underwent the above stated procedure without incident and her postoperative course and recovery was uncomplicated. On her postoperative day #2 she was tolerating a regular diet, voiding spontaneously, ambulating without problem and was using oral meds for adequate pain control. Her postoperative hemoglobin was 8.5. She was given written and verbal discharge instructions and told to followup in office at 6wks. She was given appropriate pain medicine prescriptions. Coding Level of Care Code None Diagnoses Encounter for sterilization Z30.2 H/O section Z98.891
== END 2021-02-22 10:43 | disposition home or self-care (01) | DRG 785 ==
LOC: 4S1 05:28 → EDSTATUS 08:50 → 4S2 12:10
DX: Z88.5 Allergy status to narcotic agent; Z14.1 Cystic fibrosis carrier; Z30.2 Encounter for sterilization; Z87.891 Personal history of nicotine dependence; Z37.0 Single live birth; O34.211 Maternal care for low transverse scar from previous cesarean delivery; O43.123 Velamentous insertion of umbilical cord, third trimester; O99.824 Streptococcus B carrier state complicating childbirth; Z3A.39 39 weeks gestation of pregnancy